=== PATIENT | female | born 1980 | race Caucasian/White ===

== ENCOUNTER 2016-12-10 23:16 | Emergency (ER) | payer OTHER ==
[~2016-12-10] VITALS: Ht 172.7 cm; Wt 79.5 kg
[~2016-12-10 23:16] MED LIST: BACTRIM,SEPT1 TABLET PO; CLONIDINE HCL0.1 MG PO; KEFLEX500 MG PO; NORCO 5/3251 TABLET PO; TRAZODONE HCL50 MG PO
[2016-12-11 01:59] VITALS: BP 132/72
== END 2016-12-11 01:59 | disposition left against medical advice (07) ==
LOC: EME 23:16
DX: R20.2 Paresthesia of skin (principal); F11.10 Opioid abuse, uncomplicated
CPT/HCPCS: 99281; 99284; J1200; J7512

== ENCOUNTER 2018-04-10 09:10 | Inpatient (IN) | payer OTHER ==
[~2018-04-10] VITALS: Ht 172.7 cm; Wt 84.0 kg
[2018-04-10 11:43] LABS: BASOPHIL (%) 0.6 % (0-1); BASOPHIL COUNT 0.1 K/uL (0-0.1); EOSINOPHIL (%) 0.8 % (0-5); EOSINOPHIL COUNT 0.1 K/uL (0-0.3); HEMATOCRIT 35.6 % (36.0-46.0); HEMOGLOBIN 11.4 G/DL (11.9-15.5); IMMATURE GRANULOCYTE (%) 0.3 % (0.0-0.7); LYMPHOCYTE (%) 18.4 % (15-42); LYMPHOCYTE COUNT 2.4 K/uL (1.0-2.8); MCV 81.3 FL (83-99); MONOCYTE (%) 6.1 % (3-12); MONOCYTE COUNT 0.8 K/uL (0-0.8); NEUTROPHIL (%) 73.8 % (45-76); NEUTROPHIL COUNT 9.5 K/uL (1.8-6.4); PLATELET COUNT 361 K/uL (156-360); RBC DIS.WIDTH-CV 15.6 % (11.8-14.6); RBC DIS.WIDTH-SD 46.1 % (39-53); RED BLOOD COUNT 4.38 M/uL (3.80-5.20); WHITE BLOOD COUNT 12.9 K/uL (4.1-10.2)
[2018-04-10 11:56] LABS: CHLORIDE 104 mEq/L (99-109); POTASSIUM 5.7 mEq/L (3.7-5.4); SODIUM 135 mEq/L (136-147)
[2018-04-10 11:58] LABS: GLUCOSE 136 mg/dL (70-99)
[2018-04-10 12:00] LABS: TOTAL BILIRUBIN 0.6 mg/dL (0.0-1.0)
[2018-04-10 12:02] LABS: ALKALINE PHOSPHATASE 87 IU/L (3-129); CREATININE 0.8 mg/dL (0.6-1.3); GFR ESTIMATE (CALCULATED) > 59 mL/min/
[2018-04-10 12:03] LABS: UREA NITROGEN (BUN) 11 mg/dL (9-23)
[2018-04-10 12:04] LABS: AST (GOT) 47 IU/L (2-34)
[2018-04-10 12:05] LABS: ALT (GPT) 20 IU/L (3-49)
[2018-04-10 12:13] LABS: QUANTITATIVE HCG < 4.0 MIU/ML
[2018-04-10 13:11] LABS: APPEARANCE SL.HAZY ((CLEAR)); BILIRUBIN NEGATIVE; BLOOD MODERATE; COLOR YELLOW ((YELLOW)); GLUCOSE (STRIP) NEGATIVE; KETONES 5; LEUKOCYTES MODERATE; NITRITE NEGATIVE; PROTEIN (STRIP) 30; SPECIFIC GRAVITY > 1.060 (1.000-1.030)
[2018-04-10 13:23] LABS: AMPHETAMINE NEGATIVE (500 ng/mL); BARBITURATES NEGATIVE (200 ng/mL); BENZODIAZEPINES NEGATIVE (150 ng/mL); BUPRENORPHINE NEGATIVE (10 ng/mL); COCAINE PRESUMPTIVE POSITIVE (150 ng/mL); METHADONE NEGATIVE (200 ng/mL); METHAMPHETAMINE NEGATIVE (500 ng/mL); OPIATES (MORPHINE) PRESUMPTIVE POSITIVE (100 ng/mL); OXYCODONE NEGATIVE (100 ng/mL); PHENCYCLIDINE NEGATIVE (25 ng/mL); PROPOXYPHENE NEGATIVE (300 ng/mL); THC CANNABINOIDS NEGATIVE (50 ng/mL); TRICYCLIC ANTIDEPRESSANTS NEGATIVE (300 ng/mL)
[2018-04-10 14:12] LABS: EPITHELIAL CELLS 1+ /HPF; MUCUS NONE SEEN /LPF; RED BLOOD CELLS RARE /HPF (0-5)
[2018-04-10 14:13] LABS: BACTERIA 2+ /HPF; UCUL ADDED? YES
[2018-04-10 17:39] VITALS: BP 108/56
[2018-04-10 18:01] LABS: INTER. NORMALIZED RATIO 1.1
[2018-04-10 18:04] LABS: PTT 29.4 SEC (25-37)
[2018-04-10 18:17] LABS: CHLORIDE 109 MEQ/L (99-109); CREATININE 0.5 MG/DL (0.6-1.3); GFR ESTIMATE (CALCULATED) > 59 mL/min/; SODIUM 138 MEQ/L (136-147); UREA NITROGEN (BUN) 10 mg/dL (9-23)
[2018-04-10 18:18] LABS: GLUCOSE 88 mg/dL (70-99); POTASSIUM 3.8 MEQ/L (3.7-5.4)
[2018-04-10 19:17] VITALS: BP 105/55
[2018-04-10 23:08] VITALS: BP 119/66
[2018-04-11 04:47] VITALS: BP 130/68
[2018-04-11 08:56] VITALS: BP 119/77
[2018-04-11 11:59] VITALS: BP 124/65
[2018-04-11] MEDS ORDERED: TYLENOL EXTRA500 MG PO (13:12)
[2018-04-11 13:55] LABS: CHLORIDE 109 MEQ/L (99-109); POTASSIUM 3.8 MEQ/L (3.7-5.4); SODIUM 138 MEQ/L (136-147)
[2018-04-11 14:01] LABS: CREATININE 0.4 MG/DL (0.6-1.3); GFR ESTIMATE (CALCULATED) > 59 mL/min/; GLUCOSE 102 mg/dL (70-99); UREA NITROGEN (BUN) 10 mg/dL (9-23)
[2018-04-11 16:09] LABS: HEMATOCRIT 32.2 % (36.0-46.0); HEMOGLOBIN 10.2 G/DL (11.9-15.5); MCH 25.2 PG (29.0-34.0); MCHC 31.7 G/DL (30.0-36.0); MCV 79.7 FL (83-99); PLATELET COUNT 271 K/uL (156-360); RBC DIS.WIDTH-CV 15.4 % (11.8-14.6); RBC DIS.WIDTH-SD 44.7 % (39-53); RED BLOOD COUNT 4.04 M/uL (3.80-5.20); WHITE BLOOD COUNT 10.5 K/uL (4.1-10.2)
[2018-04-11 16:17] VITALS: BP 120/73
[2018-04-11 19:39] VITALS: BP 115/57
[2018-04-12 00:44] VITALS: BP 148/79
[2018-04-12 04:52] VITALS: BP 138/67
[2018-04-12 07:16] LABS: HEMATOCRIT 32.2 % (36.0-46.0); HEMOGLOBIN 9.9 G/DL (11.9-15.5); MCH 25.5 PG (29.0-34.0); MCHC 30.7 G/DL (30.0-36.0); PLATELET COUNT 258 K/uL (156-360); RBC DIS.WIDTH-CV 15.3 % (11.8-14.6); RBC DIS.WIDTH-SD 46.3 % (39-53); RED BLOOD COUNT 3.88 M/uL (3.80-5.20); WHITE BLOOD COUNT 9.5 K/uL (4.1-10.2)
[2018-04-12 07:39] LABS: CHLORIDE 108 MEQ/L (99-109); CREATININE 0.4 MG/DL (0.6-1.3); GFR ESTIMATE (CALCULATED) > 59 mL/min/; GLUCOSE 134 mg/dL (70-99); MAGNESIUM 1.8 mg/dl (1.3-2.7); POTASSIUM 3.6 MEQ/L (3.7-5.4); SODIUM 137 MEQ/L (136-147); UREA NITROGEN (BUN) 11 mg/dL (9-23)
[2018-04-12 08:27] VITALS: BP 127/69
[2018-04-12 10:24] LABS: HEPATITIS B SURFACE ANTIGEN Nonreactive
[2018-04-12 10:25] LABS: HIV-1/2 AB/AG COMBO Nonreactive
[2018-04-12 10:33] LABS: HEPATITIS C ANTIBODY REACTIVE
[2018-04-12 11:32] VITALS: BP 118/72
[2018-04-13] MEDS ORDERED: KEFLEX500 MG PO (23:04)
[2018-04-13] MEDS ORDERED: NAPROSYN500 MG PO (23:04)
[2018-04-13] MEDS ORDERED: BACTRIM,SEPT1 TABLET PO (23:04)
== END 2018-04-12 12:50 | disposition left against medical advice (07) | DRG 603 ==
LOC: EME 09:10 → 3EAST 16:21 → EDOF 16:21 → ENRESERV 16:26 → 3EAST 17:28
PROVIDERS: Emergency Medicine; Internal Medicine; Internal Medicine Infectious Disease
DX: L03.113 Cellulitis of right upper limb (principal); I80.8 Phlebitis and thrombophlebitis of other sites; T79.A0XA Compartment syndrome, unspecified, initial encounter; F11.23 Opioid dependence with withdrawal; E87.5 Hyperkalemia; N30.90 Cystitis, unspecified without hematuria; B96.20 Unspecified Escherichia coli [E. coli] as the cause of diseases classified elsewhere; F17.210 Nicotine dependence, cigarettes, uncomplicated; F14.10 Cocaine abuse, uncomplicated; F32.9 Major depressive disorder, single episode, unspecified; Z53.20 Procedure and treatment not carried out because of patient's decision for unspecified reasons
CPT/HCPCS: 73090; 73201; 80048; 80048 91; 80053; 80202; 81003; 82550; 83605; 83735; 84702; 84999; 85025; 85027; 85610; 85730; 86803; 87040; 87077; 87086; 87186; 87340; 87389; 99281; 99285; J0696; J1650; J1885; J2543; J3370; J7030; J7040; Q0177

== ENCOUNTER 2018-04-13 21:06 | Emergency (ER) | payer OTHER ==
[~2018-04-13] VITALS: Ht 172.7 cm; Wt 81.1 kg
[~2018-04-13 21:06] MED LIST changes: +TYLENOL EXTRA500 MG PO
[2018-04-13] MEDS ORDERED: NAPROSYN500 MG PO (23:04)
[2018-04-13] MEDS ORDERED: BACTRIM,SEPT1 TABLET PO (23:04)
[2018-04-13] MEDS ORDERED: KEFLEX500 MG PO (23:04)
[2018-04-13 23:42] VITALS: BP 133/90
== END 2018-04-13 23:43 | disposition home or self-care (01) ==
LOC: EXP 21:06 → EME 21:06 → EXP 23:43
DX: L03.113 Cellulitis of right upper limb (principal); I80.8 Phlebitis and thrombophlebitis of other sites; N39.0 Urinary tract infection, site not specified; F19.10 Other psychoactive substance abuse, uncomplicated; F17.200 Nicotine dependence, unspecified, uncomplicated
CPT/HCPCS: 99281; 99284; J0696